=== PATIENT | male | born 1990 ===

== ENCOUNTER → 2019-06-12 | Outpatient (CLI) | payer SELFPAY ==
[2019-06-15 02:11] LABS: CHLAMYDIA TRACHOMATIS, NAA Negative (Negative); NEISSERIA GONORRHOEAE, NAA Negative (Negative)
== END ==
LOC: LAB SHORT 14:37 → LAB EV 14:37
PROVIDERS: Physician Assistant
DX: Z72.51 High risk heterosexual behavior (principal)
CPT/HCPCS: 87491; 87591